=== PATIENT | male | born 1960 | race Caucasian/White ===

== ENCOUNTER 2018-08-26 07:07 | Day surgery (SDC) | payer MEDICARE ==
[~2018-08-26] VITALS: Ht 180.3 cm; Wt 75.1 kg
[~2018-08-26 07:07] MED LIST: ACET-1757 PO; ALPR0.25 PO; ASPI-496 PO; ASPI-515 PO; CARV-39 PO; CARV12.52 PO; DOXY100C2 PO; FLUT9.9S NS; FURO-93 PO; FURO20TA3 PO; IVAB5TAB PO; LISI-170 PO; LISI5TAB7 PO; LOSA25TA25 PO; MULT-257 PO; MULT-516 PO; OMEP-110 PO; POTA99TA3 PO; SPIR25TA PO; SPIR25TA5 PO
[2018-08-26 08:00] VITALS: BP 102/74
[2018-08-26] MEDS ORDERED: SPIR25TA5 PO (08:00)
[2018-08-26] MEDS ORDERED: CHOL2000 PO (08:00)
[2018-08-26] MEDS ORDERED: ASPI-496 PO (08:00)
[2018-08-26] MEDS ORDERED: FURO-93 PO (08:00)
[2018-08-26] MEDS ORDERED: CARV6.252 PO (08:00)
[2018-08-26] MEDS ORDERED: SACU1TAB PO (08:00)
[2018-08-26] MEDS ORDERED: MULT-6 PO (08:00)
[2018-08-26] MEDS ORDERED: LACTATED RINGERS 1,000 ML IV SCH (08:06)
[2018-08-26] MEDS ORDERED: EPINEPHRINE 1 MG/ML, 1ML ONE (09:05)
[2018-08-26] MEDS ORDERED: BUPIVACAINE/PF 0.5% ONE (09:05)
[2018-08-26] MEDS ORDERED: FENTANYL PF 250 MCG/5ML ONE (09:18)
[2018-08-26] MEDS ORDERED: MIDAZOLAM 1 MG/ML, 2ML ONE (09:18)
[2018-08-26] MEDS ORDERED: EPHEDRINE 50 MG/ML, 1ML ONE (09:24)
[2018-08-26] MEDS ORDERED: ONDANSETRON 2MG/ML, 2ML ONE (09:24)
[2018-08-26] MEDS ORDERED: DEXAMETHASONE 4 MG/ML, 1ML ONE (09:24)
[2018-08-26] MEDS ORDERED: ETOMIDATE 40 MG/20 ML ONE (09:24)
[2018-08-26] MEDS ORDERED: CEFAZOLIN 1,000 MG ONE (09:24)
[2018-08-26] MEDS ORDERED: LACTATED RINGERS 1,000 ML ONE (09:24)
[2018-08-26] MEDS ORDERED: ALBUTEROL SULFATE 2.5 MG/3 ML NPPB PRN (10:30)
[2018-08-26] MEDS ORDERED: OXYcodone 5 MG/5 ML ORAL.SOL UDC PO PRN (10:30)
[2018-08-26] MEDS ORDERED: HYDROmorphone 1 MG/ML, 1ML IV PRN (10:30)
[2018-08-26] MEDS ORDERED: ACETAMINOPHEN 325 MG TABLET PO PRN (10:30)
[2018-08-26] MEDS ORDERED: MEPERIDINE/PF 25MG/0.5ML IVPush PRN (10:30)
[2018-08-26] MEDS ORDERED: FENTANYL PF 100 MCG/2ML IV PRN (10:30)
[2018-08-26] MEDS ORDERED: PROMETHAZINE 25 MG/ML, 1ML IV PRN (10:30)
[2018-08-26] MEDS ORDERED: FENTANYL PF 100 MCG/2ML ONE (10:59)
[2018-08-26] MEDS ORDERED: OXYcodone 5 MG/5 ML ORAL.SOL UDC ONE (10:59)
== END 2018-08-26 12:30 | disposition home or self-care (01) ==
LOC: OUT 07:07
PROVIDERS: ATTEND Surgery
DX: R22.9 Localized swelling, mass and lump, unspecified (principal); R59.1 Generalized enlarged lymph nodes; M79.89 Other specified soft tissue disorders; Z79.82 Long term (current) use of aspirin; Z79.899 Other long term (current) drug therapy
CPT/HCPCS: 21554; 88304; 88305; 93005; J0171; J0690; J1100; J2250; J2405; J3010; J3490; J7120

== ENCOUNTER 2021-01-24 14:58 | Outpatient (CLI) | payer MEDICARE ==
[~2021-01-24 14:58] MED LIST changes: -ACET-1757 PO; +ACET-2065 PO; +AMIO200T42 PO; -ASPI-515 PO; +ASPI-963 PO; +CARV3.1212 PO; +CARV6.252 PO; +CHOL2000 PO; +CITA10TA8 PO; +DIGO125T85 PO; +MULT-6 PO; +RIVA20TA PO; +SACU1TAB PO; +SACU1TAB7 PO
== END 2021-01-24 23:59 | disposition home or self-care (01) ==
LOC: CFH 14:58
PROVIDERS: ATTEND Registered Nurse
DX: I08.1 Rheumatic disorders of both mitral and tricuspid valves (principal); I42.8 Other cardiomyopathies
CPT/HCPCS: 93306